=== PATIENT | male | born 1980 ===

== ENCOUNTER 2025-08-16 11:53 | Day surgery (SDC) | payer OTHER, BC ==
[~2025-08-16] VITALS: Ht 177.8 cm; Wt 122.0 kg
[~2025-08-16 11:53] MED LIST: NS 500 ML IV ONE; Naprosyn500 MG PO
[2025-08-16] MEDS ORDERED: FentaNYL Citrate 50 MCG/ML 2 ML Injection ONE (12:24)
[2025-08-16] MEDS ORDERED: CeFAZolin Sodium 3,000 MG VIAL ONE (12:24)
[2025-08-16] MEDS ORDERED: Midazolam HCl 1MG / ML 2ML Vial ONE (12:24)
[2025-08-16] MEDS ORDERED: NS 500 ML IV ONE (12:35)
--- NOTE | 2025-08-16 12:38 | NUR ---
08/16/25 [facility]8 [facility] 1229: TIMEOUT FOR PRE-OP INJECTION. PRE-OP INJECTION BY DR GILES OF 3 CC OF MIX OF (9 CC LIDOCAINE 1% WITH EPI 1:100,000 WITH 1 CC SODIUM BICARB). PT TOLERATED WELL.
--- NOTE | 2025-08-17 09:21 | NUR ---
08/17/25 0921 Dimitri Elliott VS INCORRECTLY ENTERED. FOUR SETS OF VS WERE OBTAINED, ALL WITHIN NORMAL LIMITS. PT SPOUSE PRESENT FOR DISCHARGE INSTRUCTIONS AND FOLLOW UP CARE. PT DENIED PAIN AT TIME OF DISCHARGE.
[2025-08-17 09:26] VITALS: BP 141/91
== END 2025-08-16 13:15 | disposition home or self-care (01) ==
LOC: ORSCSDS 11:53
PROVIDERS: Orthopaedic Surgery
PROC: 0JCK0ZZ Extirpation of Matter from Left Hand Subcutaneous Tissue and Fascia, Open Approach (ICD-10-PCS; principal; 2025-08-16 13:30)
DX: S61.221D Laceration with foreign body of left index finger without damage to nail, subsequent encounter (principal); M79.645 Pain in left finger(s); Z87.891 Personal history of nicotine dependence; E66.9 Obesity, unspecified; Z68.38 Body mass index [BMI] 38.0-38.9, adult
CPT/HCPCS: J0690; J2250; J3010; J7040